=== PATIENT | female | born 1985 | race African-American/Black ===

== ENCOUNTER 2020-06-23 08:10 | Emergency (ER) | payer MEDICAID ==
[~2020-06-23] VITALS: Ht 160 cm; Wt 74.0 kg
[2020-06-23 08:14] VITALS: BP 136/81
[2020-06-23] MEDS ORDERED: IBUPROFEN 600MG TABLET PO ONE (08:30)
== END 2020-06-23 09:02 | disposition home or self-care (01) ==
LOC: ER 08:10
DX: S46.912A Strain of unspecified muscle, fascia and tendon at shoulder and upper arm level, left arm, initial encounter (principal); V43.52XA Car driver injured in collision with other type car in traffic accident, initial encounter; Y93.89 Activity, other specified; Y92.488 Other paved roadways as the place of occurrence of the external cause
CPT/HCPCS: 99282